=== PATIENT | female | born 1945 | race Caucasian/White ===

== ENCOUNTER 2016-08-16 16:38 | Inpatient (IN) | payer MEDICAID ==
[~2016-08-16] VITALS: Ht 162.6 cm; Wt 59.1 kg
[~2016-08-16 16:38] MED LIST: CEPH500B PO; DIVA500T69 PO; DOCU50CA PO; LEVO125T95 PO; OLAN5TAB2 PO; OMEP20CA4 PO
[2016-08-16 17:46] LABS: ANION GAP 9 mmol/L (8-16); CALCIUM, TOTAL 8.8 mg/dL (8.8-10.5); CARBON DIOXIDE 29 mmol/L (22-29); CHLORIDE 100 mmol/L (98-107); CREATININE 0.84 mg/dL (0.60-1.30); GLOMERULAR FILTR. RATE CALC 59 mL/min (>60); POTASSIUM 3.6 mmol/L (3.5-5.1); SODIUM SERUM 138 mmol/L (136-145); UREA NITROGEN, BLOOD 18 mg/dL (7-18)
[2016-08-16 17:52] LABS: ALANINE AMINOTRANSFERASE 33 U/L (12-78); ALBUMIN 3.1 g/dL (3.4-5.0); ASPARTATE AMINOTRANSFERASE 39 U/L (15-37); BILIRUBIN,TOTAL 0.7 mg/dL (0.1-1.0); TOTAL PROTEIN, SERUM 7.7 g/dL (6.4-8.2)
[2016-08-16 18:02] LABS: BASOPHILS % (AUTO) 0.2 % (0.0-2.0); EOSINOPHILS % (AUTO) 0.2 % (1.0-6.0); HEMATOCRIT 31.5 % (36-46); HEMOGLOBIN 10.2 g/dL (12.0-16.0); LYMPHOCYTES # (AUTO) 0.7 K/uL (1.0-4.8); LYMPHOCYTES % (AUTO) 9.1 % (22.0-44.0); MEAN CORPUSCULAR HEMOGLOBIN 34.4 pg (26.0-34.0); MEAN CORPUSCULAR HGB CONC 32.2 G/dL (31.0-37.0); MEAN CORPUSCULAR VOLUME 107 fL (80-100); MONOCYTES # (AUTO) 0.4 K/uL (0.1-1.0); MONOCYTES % (AUTO) 4.9 % (2.0-9.0); NEUTROPHILS # (AUTO) 6.8 K/uL (1.8-7.7); NEUTROPHILS % (AUTO) 85.6 % (40.0-70.0); PLATELET COUNT (AUTO) 460 K/uL (150-450); RED BLOOD CELL COUNT(AUTO) 2.95 MIL/uL (4.00-5.20); RED CELL DISTRIBUTION WIDTH 14.8 % (11.5-14.5); WHITE BLOOD COUNT (AUTO) 7.9 K/uL (4.5-11.0)
[2016-08-17] MEDS ORDERED: CEFTAROLINE 600 MG/D5W 250 ML IV ONE (00:30)
[2016-08-17] MEDS ORDERED: LORazepam 2 MG TABLET PO PRN (00:45)
[2016-08-17] MEDS ORDERED: HALOPERIDOL 5 MG TABLET PO PRN (00:45)
[2016-08-17] MEDS ORDERED: ZOLPIDEM TARTRATE 10 MG TABLET PO PRN (00:45)
[2016-08-17 01:51] LABS: APPEARANCE,URINE CLEAR (CLEAR); GLUCOSE, URINE (UA) NEGATIVE (NEGATIVE); KETONES,URINE NEGATIVE (NEGATIVE); LEUKOCYTE ESTERASE ,URINE NEGATIVE (NEGATIVE); OCCULT BLOOD,URINE NEGATIVE (NEGATIVE); PROTEIN,URINE NEGATIVE (NEGATIVE)
[2016-08-17 02:04] LABS: ADD UA MICROSCOPIC NO
[2016-08-17 03:25] VITALS: BP 124/78
[2016-08-17] MEDS ORDERED: INFLUENZA VIRUS VACCINE QVS 2016-17 (3YR+)/PF 60 MCG/0.5 ML SYRINGE IM ONE (04:15)
[2016-08-17] MEDS ORDERED: IBUPROFEN 400 MG TABLET PO PRN (07:15)
[2016-08-17 08:00] VITALS: BP 99/61
[2016-08-17] MEDS: CEPHALEXIN MONOHYDRATE 500 MG CAPSULE PO SCH (16:04)
[2016-08-17] MEDS: ACETAMINOPHEN 325 MG TABLET PO PRN (16:06)
[2016-08-17 16:07] VITALS: BP 119/78
[2016-08-17] MEDS: RisperiDONE 0.5 MG TABLET PO SCH (21:06)
[2016-08-18] MEDS: CEPHALEXIN MONOHYDRATE 500 MG CAPSULE PO SCH ×4 (00:04→23:52)
[2016-08-18] MEDS: ACETAMINOPHEN 325 MG TABLET PO PRN ×2 (01:17→10:26)
[2016-08-18 01:22] VITALS: BP 108/68
[2016-08-18 07:21] LABS: HEMOGLOBIN A1C 5.7 % (4.5-6.2)
[2016-08-18] MEDS: RisperiDONE 0.5 MG TABLET PO SCH ×2 (08:39→20:26)
[2016-08-18 10:25] VITALS: BP 120/79
[2016-08-18 17:09] VITALS: BP 112/73
[2016-08-19 02:55] VITALS: BP 108/70
[2016-08-19] MEDS: ACETAMINOPHEN 325 MG TABLET PO PRN ×2 (02:56→23:40)
[2016-08-19 08:30] VITALS: BP 115/79
[2016-08-19] MEDS: RisperiDONE 0.5 MG TABLET PO SCH ×2 (09:50→21:16)
[2016-08-19] MEDS: CEPHALEXIN MONOHYDRATE 500 MG CAPSULE PO SCH ×2 (09:51→16:43)
[2016-08-19 16:34] VITALS: BP 103/76
[2016-08-19] MEDS: FERROUS SULFATE 325 MG EC TABLET PO SCH (17:12)
[2016-08-19 23:36] VITALS: BP 110/72
[2016-08-20] MEDS: CEPHALEXIN MONOHYDRATE 500 MG CAPSULE PO SCH ×4 (00:01→23:44)
[2016-08-20] MEDS: FERROUS SULFATE 325 MG EC TABLET PO SCH ×2 (07:01→16:59)
[2016-08-20 07:14] LABS: ANION GAP 4 mmol/L (8-16); CALCIUM, TOTAL 8.3 mg/dL (8.8-10.5); CARBON DIOXIDE 32 mmol/L (22-29); CHLORIDE 101 mmol/L (98-107); CREATININE 0.66 mg/dL (0.60-1.30); GLOMERULAR FILTR. RATE CALC > 60 mL/min (>60); POTASSIUM 4.3 mmol/L (3.5-5.1); SODIUM SERUM 137 mmol/L (136-145); UREA NITROGEN, BLOOD 20 mg/dL (7-18)
[2016-08-20 08:00] VITALS: BP 95/74
[2016-08-20] MEDS: RisperiDONE 0.5 MG TABLET PO SCH ×2 (08:44→20:14)
[2016-08-20 16:30] VITALS: BP 108/60
[2016-08-21 01:12] VITALS: BP 112/79
[2016-08-21] MEDS: ACETAMINOPHEN 325 MG TABLET PO PRN (01:12)
[2016-08-21] MEDS: FERROUS SULFATE 325 MG EC TABLET PO SCH ×2 (06:53→17:11)
[2016-08-21 08:30] VITALS: BP 111/73
[2016-08-21] MEDS: CEPHALEXIN MONOHYDRATE 500 MG CAPSULE PO SCH ×2 (09:17→16:16)
[2016-08-21] MEDS: RisperiDONE 0.5 MG TABLET PO SCH ×2 (09:17→20:14)
[2016-08-21 21:22] VITALS: BP 101/65
[2016-08-22] MEDS: CEPHALEXIN MONOHYDRATE 500 MG CAPSULE PO SCH ×3 (00:04→16:00)
[2016-08-22 01:00] VITALS: BP 112/67
[2016-08-22] MEDS: ACETAMINOPHEN 325 MG TABLET PO PRN (01:00)
[2016-08-22] MEDS: FERROUS SULFATE 325 MG EC TABLET PO SCH ×2 (06:40→18:40)
[2016-08-22 08:19] VITALS: BP 115/73
[2016-08-22] MEDS: RisperiDONE 0.5 MG TABLET PO SCH ×2 (08:27→20:10)
[2016-08-22 15:11] LABS: ANION GAP 5 mmol/L (8-16); CALCIUM, TOTAL 8.1 mg/dL (8.8-10.5); CARBON DIOXIDE 30 mmol/L (22-29); CHLORIDE 96 mmol/L (98-107); CREATININE 0.74 mg/dL (0.60-1.30); GLOMERULAR FILTR. RATE CALC > 60 mL/min (>60); POTASSIUM 3.9 mmol/L (3.5-5.1); SODIUM SERUM 131 mmol/L (136-145); UREA NITROGEN, BLOOD 26 mg/dL (7-18)
[2016-08-22] MEDS: FUROSEMIDE 20 MG TABLET PO SCH (16:00)
[2016-08-22 20:14] VITALS: BP 117/69
[2016-08-23 00:16] VITALS: BP 109/69
[2016-08-23] MEDS: ACETAMINOPHEN 325 MG TABLET PO PRN (00:16)
[2016-08-23] MEDS: CEPHALEXIN MONOHYDRATE 500 MG CAPSULE PO SCH ×3 (00:18→16:43)
[2016-08-23] MEDS: FERROUS SULFATE 325 MG EC TABLET PO SCH ×2 (05:51→16:44)
[2016-08-23 08:00] VITALS: BP 109/64
[2016-08-23] MEDS: RisperiDONE 0.5 MG TABLET PO SCH ×2 (08:39→20:45)
[2016-08-23] MEDS: FUROSEMIDE 20 MG TABLET PO SCH ×2 (08:39→16:43)
[2016-08-23 17:20] VITALS: BP 102/62
[2016-08-24] MEDS: CEPHALEXIN MONOHYDRATE 500 MG CAPSULE PO SCH ×3 (00:02→17:50)
[2016-08-24 01:10] VITALS: BP 129/71
[2016-08-24] MEDS: ACETAMINOPHEN 325 MG TABLET PO PRN (01:19)
[2016-08-24] MEDS: FERROUS SULFATE 325 MG EC TABLET PO SCH ×2 (06:38→17:50)
[2016-08-24 08:00] VITALS: BP 116/76
[2016-08-24] MEDS: FUROSEMIDE 20 MG TABLET PO SCH ×2 (08:28→17:52)
[2016-08-24] MEDS: RisperiDONE 0.5 MG TABLET PO SCH ×2 (08:28→21:14)
[2016-08-24 17:07] VITALS: BP 102/73
[2016-08-25] MEDS: CEPHALEXIN MONOHYDRATE 500 MG CAPSULE PO SCH ×3 (00:09→16:23)
[2016-08-25] MEDS: ACETAMINOPHEN 325 MG TABLET PO PRN (02:09)
[2016-08-25 02:10] VITALS: BP 127/76
[2016-08-25] MEDS: FERROUS SULFATE 325 MG EC TABLET PO SCH ×2 (07:07→16:36)
[2016-08-25] MEDS: RisperiDONE 0.5 MG TABLET PO SCH ×2 (08:04→20:27)
[2016-08-25] MEDS: FUROSEMIDE 20 MG TABLET PO SCH ×2 (08:04→16:23)
[2016-08-25 08:32] VITALS: BP 104/63
[2016-08-25 08:55] LABS: ANION GAP 6 mmol/L (8-16); CALCIUM, TOTAL 8.4 mg/dL (8.8-10.5); CARBON DIOXIDE 32 mmol/L (22-29); CHLORIDE 99 mmol/L (98-107); CREATININE 0.71 mg/dL (0.60-1.30); GLOMERULAR FILTR. RATE CALC > 60 mL/min (>60); POTASSIUM 3.6 mmol/L (3.5-5.1); SODIUM SERUM 137 mmol/L (136-145); UREA NITROGEN, BLOOD 24 mg/dL (7-18)
[2016-08-25 16:41] VITALS: BP 103/79
[2016-08-26 00:01] VITALS: BP 118/70
[2016-08-26] MEDS: CEPHALEXIN MONOHYDRATE 500 MG CAPSULE PO SCH ×3 (00:02→15:59)
[2016-08-26] MEDS: ACETAMINOPHEN 325 MG TABLET PO PRN ×2 (00:05→22:28)
[2016-08-26] MEDS: FERROUS SULFATE 325 MG EC TABLET PO SCH ×2 (06:23→16:55)
[2016-08-26 08:00] VITALS: BP 103/67
[2016-08-26] MEDS: RisperiDONE 0.5 MG TABLET PO SCH ×2 (09:01→20:09)
[2016-08-26] MEDS: FUROSEMIDE 20 MG TABLET PO SCH ×2 (09:01→15:59)
[2016-08-26 22:28] VITALS: BP 108/72
[2016-08-27] MEDS: CEPHALEXIN MONOHYDRATE 500 MG CAPSULE PO SCH ×2 (00:05→08:20)
[2016-08-27 02:54] VITALS: BP 116/76
[2016-08-27] MEDS: FERROUS SULFATE 325 MG EC TABLET PO SCH ×2 (06:35→16:49)
[2016-08-27] MEDS: FUROSEMIDE 20 MG TABLET PO SCH ×2 (08:19→16:50)
[2016-08-27 08:20] VITALS: BP 113/58
[2016-08-27] MEDS: RisperiDONE 0.5 MG TABLET PO SCH (08:20)
[2016-08-27] MEDS: ACETAMINOPHEN 325 MG TABLET PO PRN (08:22)
[2016-08-27 17:08] VITALS: BP 109/68
[2016-08-28] MEDS: FERROUS SULFATE 325 MG EC TABLET PO SCH ×2 (06:38→17:23)
[2016-08-28 08:01] VITALS: BP 97/68
[2016-08-28] MEDS: RisperiDONE 0.5 MG TABLET PO SCH ×2 (09:00→21:19)
[2016-08-28] MEDS: FUROSEMIDE 20 MG TABLET PO SCH ×2 (09:20→17:22)
[2016-08-28 17:29] VITALS: BP 100/67
[2016-08-29 03:47] VITALS: BP 100/63
[2016-08-29] MEDS: ACETAMINOPHEN 325 MG TABLET PO PRN ×2 (03:49→13:56)
[2016-08-29] MEDS: FERROUS SULFATE 325 MG EC TABLET PO SCH ×2 (06:36→17:38)
[2016-08-29 08:00] VITALS: BP 99/58
[2016-08-29] MEDS: FUROSEMIDE 20 MG TABLET PO SCH ×2 (09:36→17:38)
[2016-08-29] MEDS: RisperiDONE 0.5 MG TABLET PO SCH ×2 (09:36→20:27)
[2016-08-29 20:28] VITALS: BP 103/75
[2016-08-30 03:28] VITALS: BP 113/72
[2016-08-30] MEDS: FERROUS SULFATE 325 MG EC TABLET PO SCH ×2 (06:40→17:18)
[2016-08-30] MEDS: RisperiDONE 0.5 MG TABLET PO SCH ×2 (08:28→20:31)
[2016-08-30] MEDS: FUROSEMIDE 20 MG TABLET PO SCH ×2 (08:28→16:18)
[2016-08-30 09:21] VITALS: BP 106/78
[2016-08-30 16:15] VITALS: BP 121/62
[2016-08-30] MEDS: ACETAMINOPHEN 325 MG TABLET PO PRN (16:18)
[2016-08-31 06:20] VITALS: BP 116/76
[2016-08-31] MEDS: ACETAMINOPHEN 325 MG TABLET PO PRN ×2 (06:21→23:49)
[2016-08-31] MEDS: FERROUS SULFATE 325 MG EC TABLET PO SCH ×2 (06:33→17:16)
[2016-08-31 08:19] VITALS: BP 108/67
[2016-08-31] MEDS: FUROSEMIDE 20 MG TABLET PO SCH ×2 (09:21→16:03)
[2016-08-31] MEDS: RisperiDONE 0.5 MG TABLET PO SCH ×2 (09:21→20:14)
[2016-08-31 19:42] VITALS: BP 101/85
[2016-09-01] MEDS: FERROUS SULFATE 325 MG EC TABLET PO SCH ×2 (06:33→17:29)
[2016-09-01 08:40] VITALS: BP 107/69
[2016-09-01] MEDS: ACETAMINOPHEN 325 MG TABLET PO PRN ×2 (09:03→23:47)
[2016-09-01] MEDS: RisperiDONE 0.5 MG TABLET PO SCH ×2 (09:04→20:13)
[2016-09-01] MEDS: FUROSEMIDE 20 MG TABLET PO SCH ×2 (09:04→17:29)
[2016-09-01 19:01] VITALS: BP 116/63
[2016-09-02 00:01] VITALS: BP 118/71
[2016-09-02] MEDS: FERROUS SULFATE 325 MG EC TABLET PO SCH ×2 (06:40→16:20)
[2016-09-02 08:00] VITALS: BP 119/72
[2016-09-02] MEDS: RisperiDONE 0.5 MG TABLET PO SCH ×2 (09:52→20:44)
[2016-09-02] MEDS: FUROSEMIDE 20 MG TABLET PO SCH ×2 (09:52→16:20)
[2016-09-02 16:19] VITALS: BP 127/70
[2016-09-02] MEDS: ACETAMINOPHEN 325 MG TABLET PO PRN (16:20)
[2016-09-02 17:19] VITALS: BP 119/69
[2016-09-02 18:39] VITALS: BP 110/74
[2016-09-03] MEDS: ACETAMINOPHEN 325 MG TABLET PO PRN ×2 (02:05→15:50)
[2016-09-03] MEDS: FERROUS SULFATE 325 MG EC TABLET PO SCH ×2 (06:38→17:17)
[2016-09-03 08:59] VITALS: BP 129/78
[2016-09-03] MEDS: FUROSEMIDE 20 MG TABLET PO SCH ×2 (10:11→15:54)
[2016-09-03] MEDS: RisperiDONE 0.5 MG TABLET PO SCH ×2 (10:11→19:59)
[2016-09-03 16:14] VITALS: BP 105/65
[2016-09-04 04:34] VITALS: BP 108/71
[2016-09-04] MEDS: ACETAMINOPHEN 325 MG TABLET PO PRN ×2 (04:36→23:49)
[2016-09-04] MEDS: FERROUS SULFATE 325 MG EC TABLET PO SCH ×2 (06:48→18:19)
[2016-09-04 08:30] VITALS: BP 104/64
[2016-09-04] MEDS: FUROSEMIDE 20 MG TABLET PO SCH ×2 (09:10→18:19)
[2016-09-04] MEDS: RisperiDONE 0.5 MG TABLET PO SCH (09:11)
[2016-09-04 17:06] VITALS: BP 114/71
[2016-09-04] MEDS: RisperiDONE 1 MG TABLET PO SCH (20:10)
[2016-09-05] MEDS: FERROUS SULFATE 325 MG EC TABLET PO SCH ×2 (06:57→17:30)
[2016-09-05 08:30] VITALS: BP 103/67
[2016-09-05] MEDS: RisperiDONE 1 MG TABLET PO SCH ×2 (09:44→20:19)
[2016-09-05] MEDS: FUROSEMIDE 20 MG TABLET PO SCH ×2 (09:45→16:08)
[2016-09-05 17:11] VITALS: BP 111/72
[2016-09-05 21:47] VITALS: BP 105/69
[2016-09-05] MEDS: ACETAMINOPHEN 325 MG TABLET PO PRN (21:51)
[2016-09-06] MEDS: FERROUS SULFATE 325 MG EC TABLET PO SCH ×2 (06:48→19:21)
[2016-09-06 08:00] VITALS: BP 130/88
[2016-09-06] MEDS: RisperiDONE 1 MG TABLET PO SCH ×2 (08:47→20:21)
[2016-09-06] MEDS: FUROSEMIDE 20 MG TABLET PO SCH ×2 (08:47→16:01)
[2016-09-06 16:06] VITALS: BP 118/68
[2016-09-06] MEDS: ACETAMINOPHEN 325 MG TABLET PO PRN (20:43)
[2016-09-06 20:48] VITALS: BP 124/68
[2016-09-07 05:59] VITALS: BP 110/76
[2016-09-07] MEDS: FERROUS SULFATE 325 MG EC TABLET PO SCH ×2 (07:00→17:03)
[2016-09-07] MEDS: RisperiDONE 1 MG TABLET PO SCH ×2 (08:11→20:54)
[2016-09-07] MEDS: FUROSEMIDE 20 MG TABLET PO SCH ×2 (08:11→17:03)
[2016-09-07 10:25] VITALS: BP 113/69
[2016-09-07] MEDS: ACETAMINOPHEN 325 MG TABLET PO PRN ×2 (10:29→20:54)
[2016-09-07 16:37] VITALS: BP 112/78
[2016-09-07 20:52] VITALS: BP 116/82
[2016-09-08 04:59] VITALS: BP 118/72
[2016-09-08] MEDS: FERROUS SULFATE 325 MG EC TABLET PO SCH ×2 (06:40→18:01)
[2016-09-08 08:25] VITALS: BP 126/78
[2016-09-08] MEDS: FUROSEMIDE 20 MG TABLET PO SCH ×2 (08:28→18:01)
[2016-09-08] MEDS: RisperiDONE 1 MG TABLET PO SCH ×2 (08:28→21:39)
[2016-09-08] MEDS: ACETAMINOPHEN 325 MG TABLET PO PRN (08:28)
[2016-09-08 18:17] VITALS: BP 114/50
[2016-09-09] MEDS: ACETAMINOPHEN 325 MG TABLET PO PRN ×2 (02:29→17:17)
[2016-09-09] MEDS: FERROUS SULFATE 325 MG EC TABLET PO SCH ×2 (06:55→16:54)
[2016-09-09 09:39] VITALS: BP 119/76
[2016-09-09] MEDS: FUROSEMIDE 20 MG TABLET PO SCH ×2 (10:52→16:54)
[2016-09-09] MEDS: RisperiDONE 1 MG TABLET PO SCH (10:52)
[2016-09-09 17:15] VITALS: BP 108/72
[2016-09-09 18:15] VITALS: BP 110/76
[2016-09-09] MEDS: RisperiDONE 2 MG TABLET PO SCH (21:19)
[2016-09-10] MEDS: ACETAMINOPHEN 325 MG TABLET PO PRN (02:01)
[2016-09-10] MEDS: FERROUS SULFATE 325 MG EC TABLET PO SCH ×2 (06:33→16:40)
[2016-09-10 08:00] VITALS: BP 110/71
[2016-09-10] MEDS: RisperiDONE 2 MG TABLET PO SCH ×2 (09:38→20:38)
[2016-09-10] MEDS: FUROSEMIDE 20 MG TABLET PO SCH ×2 (09:38→16:40)
[2016-09-10 16:45] VITALS: BP 122/74
[2016-09-11] MEDS: FERROUS SULFATE 325 MG EC TABLET PO SCH ×2 (07:01→16:43)
[2016-09-11 08:00] VITALS: BP 107/63
[2016-09-11] MEDS: FUROSEMIDE 20 MG TABLET PO SCH ×2 (09:56→16:43)
[2016-09-11] MEDS: RisperiDONE 2 MG TABLET PO SCH ×2 (09:56→21:16)
[2016-09-11 16:22] VITALS: BP 100/60
[2016-09-12 05:30] VITALS: BP 100/64
[2016-09-12] MEDS: ACETAMINOPHEN 325 MG TABLET PO PRN ×2 (05:43→22:52)
[2016-09-12] MEDS: FERROUS SULFATE 325 MG EC TABLET PO SCH ×2 (06:37→16:47)
[2016-09-12] MEDS: RisperiDONE 2 MG TABLET PO SCH ×2 (08:58→20:20)
[2016-09-12] MEDS: FUROSEMIDE 20 MG TABLET PO SCH ×2 (08:58→16:47)
[2016-09-12 12:02] VITALS: BP 103/65
[2016-09-12 18:09] VITALS: BP 101/64
[2016-09-12 22:50] VITALS: BP 106/68
[2016-09-13] MEDS: FERROUS SULFATE 325 MG EC TABLET PO SCH ×2 (06:44→17:36)
[2016-09-13] MEDS: ACETAMINOPHEN 325 MG TABLET PO PRN (07:06)
[2016-09-13 08:14] VITALS: BP 113/78
[2016-09-13] MEDS: RisperiDONE 2 MG TABLET PO SCH ×2 (10:08→20:31)
[2016-09-13] MEDS: FUROSEMIDE 20 MG TABLET PO SCH ×2 (10:08→17:36)
[2016-09-13 19:51] VITALS: BP 113/65
[2016-09-14] MEDS: ACETAMINOPHEN 325 MG TABLET PO PRN ×2 (01:34→14:24)
[2016-09-14] MEDS: FERROUS SULFATE 325 MG EC TABLET PO SCH ×2 (07:02→16:18)
[2016-09-14 08:19] VITALS: BP 96/60
[2016-09-14] MEDS: FUROSEMIDE 20 MG TABLET PO SCH ×2 (08:56→16:17)
[2016-09-14] MEDS: RisperiDONE 2 MG TABLET PO SCH ×2 (08:56→20:11)
[2016-09-14 17:15] VITALS: BP 104/74
[2016-09-15 03:15] VITALS: BP 104/64
[2016-09-15] MEDS: ACETAMINOPHEN 325 MG TABLET PO PRN ×3 (03:23→23:32)
[2016-09-15] MEDS: FERROUS SULFATE 325 MG EC TABLET PO SCH ×2 (06:54→16:39)
[2016-09-15 08:25] VITALS: BP 105/67
[2016-09-15] MEDS: FUROSEMIDE 20 MG TABLET PO SCH ×2 (09:07→16:39)
[2016-09-15] MEDS: RisperiDONE 2 MG TABLET PO SCH ×2 (09:08→20:15)
[2016-09-15 21:24] VITALS: BP 110/63
[2016-09-15 23:33] VITALS: BP 112/64
[2016-09-16] MEDS: FERROUS SULFATE 325 MG EC TABLET PO SCH ×2 (06:38→17:06)
[2016-09-16 08:30] VITALS: BP 102/68
[2016-09-16] MEDS: RisperiDONE 2 MG TABLET PO SCH ×2 (08:34→21:18)
[2016-09-16] MEDS: FUROSEMIDE 20 MG TABLET PO SCH ×2 (08:34→17:06)
[2016-09-16] MEDS: ACETAMINOPHEN 325 MG TABLET PO PRN (08:35)
[2016-09-16 16:23] VITALS: BP 118/76
[2016-09-17] MEDS: ACETAMINOPHEN 325 MG TABLET PO PRN ×2 (06:07→22:19)
[2016-09-17] MEDS: FERROUS SULFATE 325 MG EC TABLET PO SCH ×2 (07:04→16:44)
[2016-09-17 08:00] VITALS: BP 106/66
[2016-09-17] MEDS: RisperiDONE 2 MG TABLET PO SCH ×2 (08:15→20:39)
[2016-09-17] MEDS: FUROSEMIDE 20 MG TABLET PO SCH ×2 (08:15→16:44)
[2016-09-17 16:42] VITALS: BP 102/65
[2016-09-18] MEDS: FERROUS SULFATE 325 MG EC TABLET PO SCH ×2 (06:41→17:45)
[2016-09-18 08:29] VITALS: BP 104/61
[2016-09-18] MEDS: RisperiDONE 2 MG TABLET PO SCH (08:35)
[2016-09-18] MEDS: FUROSEMIDE 20 MG TABLET PO SCH ×2 (08:36→17:45)
[2016-09-18] MEDS: ACETAMINOPHEN 325 MG TABLET PO PRN (08:39)
[2016-09-18 08:41] VITALS: BP 104/61
[2016-09-18 18:58] VITALS: BP 108/66
[2016-09-18] MEDS: OLANZapine 5 MG TABLET PO SCH (21:15)
[2016-09-18] MEDS: DIVALPROEX SODIUM 500 MG ER TABLET PO SCH (21:15)
[2016-09-19 05:25] VITALS: BP 111/77
[2016-09-19] MEDS: FERROUS SULFATE 325 MG EC TABLET PO SCH ×2 (06:31→16:46)
[2016-09-19 08:00] VITALS: BP 117/78
[2016-09-19] MEDS: FUROSEMIDE 20 MG TABLET PO SCH ×2 (09:45→16:46)
[2016-09-19] MEDS: ACETAMINOPHEN 325 MG TABLET PO PRN (14:35)
[2016-09-19 15:35] VITALS: BP 110/68
[2016-09-19 16:48] VITALS: BP 116/71
[2016-09-19] MEDS: OLANZapine 5 MG TABLET PO SCH (20:40)
[2016-09-19] MEDS: DIVALPROEX SODIUM 500 MG ER TABLET PO SCH (20:41)
[2016-09-20 04:04] VITALS: BP 110/80
[2016-09-20] MEDS: ACETAMINOPHEN 325 MG TABLET PO PRN ×2 (04:47→23:59)
[2016-09-20] MEDS: FERROUS SULFATE 325 MG EC TABLET PO SCH ×2 (06:42→17:34)
[2016-09-20 08:00] VITALS: BP 113/75
[2016-09-20] MEDS: FUROSEMIDE 20 MG TABLET PO SCH ×2 (09:59→17:34)
[2016-09-20 16:00] VITALS: BP 128/87
[2016-09-20] MEDS: DIVALPROEX SODIUM 500 MG ER TABLET PO SCH (20:53)
[2016-09-20] MEDS: OLANZapine 5 MG TABLET PO SCH (20:53)
[2016-09-20 23:55] VITALS: BP 105/70
[2016-09-21] MEDS: FERROUS SULFATE 325 MG EC TABLET PO SCH ×2 (06:50→17:32)
[2016-09-21 08:48] VITALS: BP 96/61
[2016-09-21] MEDS: FUROSEMIDE 20 MG TABLET PO SCH ×2 (09:00→17:32)
[2016-09-21 16:59] VITALS: BP 98/68
[2016-09-21] MEDS: OLANZapine 5 MG TABLET PO SCH (20:52)
[2016-09-21] MEDS: DIVALPROEX SODIUM 500 MG ER TABLET PO SCH (20:52)
[2016-09-22] MEDS: ACETAMINOPHEN 325 MG TABLET PO PRN (04:20)
[2016-09-22 04:23] VITALS: BP 110/66
[2016-09-22] MEDS: FERROUS SULFATE 325 MG EC TABLET PO SCH ×2 (06:59→16:51)
[2016-09-22] MEDS: FUROSEMIDE 20 MG TABLET PO SCH ×2 (08:28→16:51)
[2016-09-22 08:46] VITALS: BP 105/70
[2016-09-22 16:15] VITALS: BP 126/68
[2016-09-22] MEDS: OLANZapine 5 MG TABLET PO SCH (21:22)
[2016-09-22] MEDS: DIVALPROEX SODIUM 500 MG ER TABLET PO SCH (21:22)
[2016-09-23 03:14] VITALS: BP 107/66
[2016-09-23] MEDS: ACETAMINOPHEN 325 MG TABLET PO PRN ×2 (03:15→14:21)
[2016-09-23] MEDS: FERROUS SULFATE 325 MG EC TABLET PO SCH ×2 (06:35→16:36)
[2016-09-23 08:00] VITALS: BP 126/91
[2016-09-23] MEDS: FUROSEMIDE 20 MG TABLET PO SCH ×2 (09:07→16:37)
[2016-09-23 14:23] VITALS: BP 105/74
[2016-09-23 15:22] VITALS: BP 111/72
[2016-09-23 16:59] VITALS: BP 110/74
[2016-09-23] MEDS: OLANZapine 5 MG TABLET PO SCH (20:47)
[2016-09-23] MEDS: DIVALPROEX SODIUM 500 MG ER TABLET PO SCH (20:47)
[2016-09-24 00:53] VITALS: BP 119/75
[2016-09-24] MEDS: ACETAMINOPHEN 325 MG TABLET PO PRN (00:57)
[2016-09-24] MEDS: FERROUS SULFATE 325 MG EC TABLET PO SCH ×2 (07:05→17:16)
[2016-09-24 08:00] VITALS: BP 111/65
[2016-09-24] MEDS: FUROSEMIDE 20 MG TABLET PO SCH ×2 (10:19→16:35)
[2016-09-24 18:00] VITALS: BP 109/69
[2016-09-24] MEDS: DIVALPROEX SODIUM 500 MG ER TABLET PO SCH (21:25)
[2016-09-24] MEDS: OLANZapine 5 MG TABLET PO SCH (21:26)
[2016-09-25 00:32] VITALS: BP 103/66
[2016-09-25] MEDS: ACETAMINOPHEN 325 MG TABLET PO PRN (00:33)
[2016-09-25] MEDS: FERROUS SULFATE 325 MG EC TABLET PO SCH ×2 (07:00→17:11)
[2016-09-25] MEDS: FUROSEMIDE 20 MG TABLET PO SCH ×2 (08:55→17:11)
[2016-09-25 10:36] VITALS: BP 121/76
[2016-09-25 18:23] VITALS: BP 129/71
[2016-09-25] MEDS: DIVALPROEX SODIUM 500 MG ER TABLET PO SCH (21:24)
[2016-09-25] MEDS: OLANZapine 10 MG TABLET PO SCH (21:25)
[2016-09-26 02:00] VITALS: BP 109/65
[2016-09-26] MEDS: ACETAMINOPHEN 325 MG TABLET PO PRN ×2 (02:00→14:13)
[2016-09-26] MEDS: FERROUS SULFATE 325 MG EC TABLET PO SCH ×2 (06:06→17:41)
[2016-09-26] MEDS: FUROSEMIDE 20 MG TABLET PO SCH ×2 (09:39→17:41)
[2016-09-26 10:16] VITALS: BP 139/77
[2016-09-26 14:16] VITALS: BP 97/68
[2016-09-26 15:24] VITALS: BP 106/65
[2016-09-26 17:24] VITALS: BP 101/68
[2016-09-26] MEDS: DIVALPROEX SODIUM 500 MG ER TABLET PO SCH (21:25)
[2016-09-26] MEDS: OLANZapine 10 MG TABLET PO SCH (21:25)
[2016-09-27 01:24] VITALS: BP 111/63
[2016-09-27] MEDS: ACETAMINOPHEN 325 MG TABLET PO PRN (01:24)
[2016-09-27] MEDS: FERROUS SULFATE 325 MG EC TABLET PO SCH ×2 (06:32→16:50)
[2016-09-27 08:30] VITALS: BP 119/76
[2016-09-27] MEDS: FUROSEMIDE 20 MG TABLET PO SCH ×2 (08:48→16:47)
[2016-09-27] MEDS: VALPROIC ACID 250 MG/5 ML SYRUP UDCUP PO SCH ×2 (08:50→20:28)
[2016-09-27 16:47] VITALS: BP 96/61
[2016-09-27] MEDS: OLANZapine 10 MG RAPDIS TABLET PO SCH (20:28)
[2016-09-28 01:26] VITALS: BP 137/50
[2016-09-28] MEDS: ACETAMINOPHEN 325 MG TABLET PO PRN (01:26)
[2016-09-28] MEDS: FERROUS SULFATE 325 MG EC TABLET PO SCH ×2 (06:37→17:37)
[2016-09-28 08:30] VITALS: BP 97/62
[2016-09-28] MEDS: VALPROIC ACID 250 MG/5 ML SYRUP UDCUP PO SCH ×2 (09:14→20:41)
[2016-09-28] MEDS: FUROSEMIDE 20 MG TABLET PO SCH ×2 (09:15→17:38)
[2016-09-28 20:16] VITALS: BP 123/76
[2016-09-28] MEDS: OLANZapine 10 MG RAPDIS TABLET PO SCH (20:41)
[2016-09-29 00:49] VITALS: BP 113/71
[2016-09-29] MEDS: ACETAMINOPHEN 325 MG TABLET PO PRN (00:49)
[2016-09-29 00:50] VITALS: BP 118/74
[2016-09-29] MEDS: FERROUS SULFATE 325 MG EC TABLET PO SCH ×2 (06:34→16:48)
[2016-09-29] MEDS: FUROSEMIDE 20 MG TABLET PO SCH ×2 (09:45→16:48)
[2016-09-29] MEDS: VALPROIC ACID 250 MG/5 ML SYRUP UDCUP PO SCH ×2 (09:46→20:21)
[2016-09-29 09:47] VITALS: BP 113/66
[2016-09-29 16:09] VITALS: BP 109/72
[2016-09-29] MEDS: OLANZapine 10 MG RAPDIS TABLET PO SCH (20:21)
[2016-09-30 02:05] VITALS: BP 100/65
[2016-09-30] MEDS: ACETAMINOPHEN 325 MG TABLET PO PRN ×2 (02:08→13:56)
[2016-09-30] MEDS: FERROUS SULFATE 325 MG EC TABLET PO SCH ×2 (06:45→16:34)
[2016-09-30] MEDS: VALPROIC ACID 250 MG/5 ML SYRUP UDCUP PO SCH ×2 (08:27→20:19)
[2016-09-30] MEDS: FUROSEMIDE 20 MG TABLET PO SCH ×2 (08:27→16:34)
[2016-09-30 08:32] VITALS: BP 107/71
[2016-09-30 18:28] VITALS: BP 113/70
[2016-09-30] MEDS: OLANZapine 10 MG RAPDIS TABLET PO SCH (20:19)
[2016-10-01] MEDS: ACETAMINOPHEN 325 MG TABLET PO PRN ×2 (01:59→17:03)
[2016-10-01] MEDS: FERROUS SULFATE 325 MG EC TABLET PO SCH ×2 (06:55→17:00)
[2016-10-01 08:21] VITALS: BP 108/70
[2016-10-01] MEDS: VALPROIC ACID 250 MG/5 ML SYRUP UDCUP PO SCH ×2 (10:12→20:29)
[2016-10-01] MEDS: FUROSEMIDE 20 MG TABLET PO SCH ×2 (10:12→17:00)
[2016-10-01 16:20] VITALS: BP 104/66
[2016-10-01 17:03] VITALS: BP 110/81
[2016-10-01] MEDS: OLANZapine 10 MG RAPDIS TABLET PO SCH (20:29)
[2016-10-02 01:00] VITALS: BP 112/71
[2016-10-02] MEDS: ACETAMINOPHEN 325 MG TABLET PO PRN ×2 (01:02→16:16)
[2016-10-02 01:46] VITALS: BP 112/71
[2016-10-02] MEDS: FERROUS SULFATE 325 MG EC TABLET PO SCH ×2 (06:56→16:14)
[2016-10-02] MEDS: VALPROIC ACID 250 MG/5 ML SYRUP UDCUP PO SCH ×2 (09:52→20:50)
[2016-10-02] MEDS: FUROSEMIDE 20 MG TABLET PO SCH ×2 (09:52→16:14)
[2016-10-02 09:53] VITALS: BP 114/71
[2016-10-02 16:11] VITALS: BP 110/66
[2016-10-02] MEDS: OLANZapine 10 MG RAPDIS TABLET PO SCH (20:50)
[2016-10-03] MEDS: ACETAMINOPHEN 325 MG TABLET PO PRN (00:51)
[2016-10-03] MEDS: FERROUS SULFATE 325 MG EC TABLET PO SCH ×2 (06:31→17:38)
[2016-10-03 08:00] VITALS: BP 133/90
[2016-10-03] MEDS: FUROSEMIDE 20 MG TABLET PO SCH ×2 (09:16→16:09)
[2016-10-03] MEDS: VALPROIC ACID 250 MG/5 ML SYRUP UDCUP PO SCH ×2 (09:16→20:12)
[2016-10-03 17:02] VITALS: BP 114/73
[2016-10-03] MEDS: OLANZapine 10 MG RAPDIS TABLET PO SCH (20:12)
[2016-10-04 00:20] VITALS: BP 106/72
[2016-10-04] MEDS: ACETAMINOPHEN 325 MG TABLET PO PRN ×2 (00:23→17:33)
[2016-10-04] MEDS: FERROUS SULFATE 325 MG EC TABLET PO SCH ×2 (06:50→17:32)
[2016-10-04 08:00] VITALS: BP 122/83
[2016-10-04] MEDS: FUROSEMIDE 20 MG TABLET PO SCH ×2 (09:20→16:18)
[2016-10-04] MEDS: VALPROIC ACID 250 MG/5 ML SYRUP UDCUP PO SCH ×2 (09:20→20:14)
[2016-10-04] MEDS ORDERED: PETROLATUM,WHITE 71 GM JELLY TP PRN (10:15)
[2016-10-04] MEDS ORDERED: VALP250 PO (10:40)
[2016-10-04] MEDS ORDERED: FERR-89 PO (10:40)
[2016-10-04] MEDS ORDERED: FURO20 PO (10:40)
[2016-10-04] MEDS ORDERED: OLAN10TA6 PO (10:40)
[2016-10-04 16:44] VITALS: BP 104/67
[2016-10-04 17:33] VITALS: BP 112/69
[2016-10-04] MEDS: OLANZapine 10 MG RAPDIS TABLET PO SCH (20:14)
[2016-10-05] MEDS: ACETAMINOPHEN 325 MG TABLET PO PRN (00:03)
[2016-10-05] MEDS: FERROUS SULFATE 325 MG EC TABLET PO SCH ×2 (07:01→16:38)
[2016-10-05 08:00] VITALS: BP 109/77
[2016-10-05] MEDS: VALPROIC ACID 250 MG/5 ML SYRUP UDCUP PO SCH ×2 (08:41→21:52)
[2016-10-05] MEDS: FUROSEMIDE 20 MG TABLET PO SCH ×2 (08:41→16:38)
[2016-10-05 16:32] VITALS: BP 111/76
[2016-10-05] MEDS: OLANZapine 10 MG RAPDIS TABLET PO SCH (21:52)
[2016-10-06] MEDS: ACETAMINOPHEN 325 MG TABLET PO PRN (00:26)
[2016-10-06] MEDS: FERROUS SULFATE 325 MG EC TABLET PO SCH ×2 (06:45→17:39)
[2016-10-06 08:22] VITALS: BP 113/73
[2016-10-06] MEDS: VALPROIC ACID 250 MG/5 ML SYRUP UDCUP PO SCH ×2 (09:21→21:04)
[2016-10-06] MEDS: FUROSEMIDE 20 MG TABLET PO SCH ×2 (09:21→17:39)
[2016-10-06 16:00] VITALS: BP 113/78
[2016-10-06] MEDS: OLANZapine 10 MG RAPDIS TABLET PO SCH (21:04)
[2016-10-07 03:10] VITALS: BP 121/79
[2016-10-07] MEDS: ACETAMINOPHEN 325 MG TABLET PO PRN (03:11)
[2016-10-07] MEDS: FERROUS SULFATE 325 MG EC TABLET PO SCH ×2 (06:42→16:28)
[2016-10-07 08:33] VITALS: BP 129/81
[2016-10-07] MEDS: VALPROIC ACID 250 MG/5 ML SYRUP UDCUP PO SCH ×2 (12:45→21:37)
[2016-10-07] MEDS: FUROSEMIDE 20 MG TABLET PO SCH ×2 (12:45→16:29)
[2016-10-07 19:13] VITALS: BP 116/75
[2016-10-07] MEDS: OLANZapine 10 MG RAPDIS TABLET PO SCH (21:37)
[2016-10-08 00:57] VITALS: BP 104/70
[2016-10-08] MEDS: ACETAMINOPHEN 325 MG TABLET PO PRN (00:59)
[2016-10-08] MEDS: FERROUS SULFATE 325 MG EC TABLET PO SCH (06:48)
[2016-10-08 09:28] VITALS: BP 127/86
[2016-10-08] MEDS: VALPROIC ACID 250 MG/5 ML SYRUP UDCUP PO SCH (09:35)
[2016-10-08] MEDS: FUROSEMIDE 20 MG TABLET PO SCH (09:35)
== END 2016-10-08 12:15 | disposition home or self-care (01) | DRG 750 ==
LOC: EEVIPCON 16:43 → EMS 16:43 → UNDOADMIN 08-17 01:45 → EDBD 08-17 01:45 → 3EI 08-17 01:45
DX: F25.1 Schizoaffective disorder, depressive type (principal); G93.40 Encephalopathy, unspecified; L03.115 Cellulitis of right lower limb; Z59.0 Homelessness; L03.116 Cellulitis of left lower limb; F99 Mental disorder, not otherwise specified; I87.8 Other specified disorders of veins; D64.9 Anemia, unspecified; Z91.030 Bee allergy status
CPT/HCPCS: 83036; 84443; 87081; 93005; 96365; 97110; 97116; 97162; 97166; 97530; 99285; G0480; J0712

== ENCOUNTER 2016-10-08 19:22 | Emergency (ER) | payer MEDICAID ==
[~2016-10-08] VITALS: Ht 162.6 cm; Wt 50.0 kg
[~2016-10-08 19:22] MED LIST changes: -CEPH500B PO; -DIVA500T69 PO; -DOCU50CA PO; +FERS325 PO; +FURO20 PO; -LEVO125T95 PO; +OLAN10TA6 PO; -OLAN5TAB2 PO; -OMEP20CA4 PO; +VALP250 PO
[2016-10-08 19:52] LABS: BASOPHILS % (AUTO) 0.3 % (0.0-2.0); EOSINOPHILS % (AUTO) 1.1 % (1.0-6.0); HEMATOCRIT 38.2 % (36-46); HEMOGLOBIN 12.4 g/dL (12.0-16.0); LYMPHOCYTES # (AUTO) 2.1 K/uL (1.0-4.8); LYMPHOCYTES % (AUTO) 36.1 % (22.0-44.0); MEAN CORPUSCULAR HEMOGLOBIN 32.6 pg (26.0-34.0); MEAN CORPUSCULAR HGB CONC 32.6 G/dL (31.0-37.0); MEAN CORPUSCULAR VOLUME 100 fL (80-100); MONOCYTES # (AUTO) 0.5 K/uL (0.1-1.0); MONOCYTES % (AUTO) 9.3 % (2.0-9.0); NEUTROPHILS # (AUTO) 3.1 K/uL (1.8-7.7); NEUTROPHILS % (AUTO) 53.2 % (40.0-70.0); PLATELET COUNT (AUTO) 299 K/uL (150-450); RED BLOOD CELL COUNT(AUTO) 3.81 MIL/uL (4.00-5.20); RED CELL DISTRIBUTION WIDTH 14.2 % (11.5-14.5); WHITE BLOOD COUNT (AUTO) 5.8 K/uL (4.5-11.0)
[2016-10-08 20:04] LABS: ANION GAP 7 mmol/L (8-16); CALCIUM, TOTAL 9.4 mg/dL (8.8-10.5); CARBON DIOXIDE 31 mmol/L (22-29); CHLORIDE 103 mmol/L (98-107); CREATININE 0.69 mg/dL (0.60-1.30); GLOMERULAR FILTR. RATE CALC > 60 mL/min (>60); SODIUM SERUM 141 mmol/L (136-145); UREA NITROGEN, BLOOD 25 mg/dL (7-18)
[2016-10-08 20:10] LABS: ALANINE AMINOTRANSFERASE 17 U/L (12-78); ALBUMIN 3.9 g/dL (3.4-5.0); ASPARTATE AMINOTRANSFERASE 13 U/L (15-37); BILIRUBIN,TOTAL 0.3 mg/dL (0.1-1.0); TOTAL PROTEIN, SERUM 8.4 g/dL (6.4-8.2)
[2016-10-08 20:18] LABS: RBC MORPHOLOGY COMMENT ABNORMAL RBC MORPH
[2016-10-08] MEDS ORDERED: OLANZapine 5 MG RAPDIS TABLET PO ONE (20:30)
[2016-10-08] MEDS ORDERED: DIVALPROEX SODIUM 500 MG ER TABLET PO ONE (20:30)
[2016-10-08 20:56] VITALS: BP 132/76
== END 2016-10-08 20:56 | disposition home or self-care (01) ==
LOC: EMS 19:25
DX: F20.9 Schizophrenia, unspecified (principal)
CPT/HCPCS: 36415; 80053; 80307; 85025; 99285; G0480